=== PATIENT | male | born 1955 | race Caucasian/White ===

== ENCOUNTER → 2016-09-16 09:10 | Emergency (ER) | payer OTHER ==
[~2016-09-16 09:10] MED LIST: Lidocaine 1%* 5 ML VIAL ONE
[2016-09-16 09:16] VITALS: BP 123/92
--- NOTE | 2016-09-16 10:03 | ED ---
Laceration/Wound HPI - HPI Summary HPI Summary: Patient presents to ED s/p fall while running this morning with a laceration to the bridge of the nose, minimal blood loss and multiple abrasions over knees, arms and face. He denies LOC, confusion, N/V or visual disturbances following the incident. Denies other complaints of pain. Patient was ambulatory at the scene. Denies blood thinners or medications. He is otherwise healthy. Pain is 3/10, discretely located over the bridge of the nose and improved since arrival to ED. - History of Current Complaint Stated Complaint: FALL/FACIAL LACERATIONS Time Seen by Provider: 09/16/16 09:19 Hx Obtained From: Patient Mechanism of Injury: Sharp/Blunt Trauma Onset/Duration: Sudden Onset Aggravating: Nothing Alleviating: Compression Timing: Constant Onset Severity: Mild Current Severity: Mild Pain Intensity: 3 Pain Scale Used: 0-10 Numeric Associated Signs & Symptoms: Negative Related Hx: Recent Trauma PMH/Surg Hx/FS Hx/Imm Hx Previously Healthy: Yes - Immunization History Hx Pertussis Vaccination: No Immunizations Up to Date: Unable to Obtain/Confirm Infectious Disease History: No Infectious Disease History: Denies: Traveled Outside the [place] in Last 30 Days - Social History Occupation: Employed Full-time Lives: With Family Alcohol Use: None Hx Substance Use: No Substance Use Type: Reports: None Hx Tobacco Use: No Smoking Status (MU): Never Smoked Tobacco Review of Systems Constitutional: Negative Eyes: Negative Positive: Epistaxis Cardiovascular: Negative Gastrointestinal: Negative Positive: no symptoms reported, see HPI Musculoskeletal: Negative Positive: Other - multiple abrasions and 2cm irregular laceration to the bridge of the nose Neurological: Negative All Other Systems Reviewed And Are Negative: Yes Physical Exam Triage Information Reviewed: Yes Vital Signs On Initial Exam: Initial Vitals Temp Pulse Resp BP Pulse Ox 97.4 F 59 16 123/92 100 09/16/16 09:12 09/16/16 09:12 09/16/16 09:12 09/16/16 09:12 09/16/16 09:12 Vital Signs Reviewed: Yes Appearance: Positive: Well-Appearing, Well-Nourished Skin: Positive: Warm, Skin Color Reflects Adequate Perfusion, Other - multiple abrasions and 2cm irregular laceration to the bridge of the nose Head/Face: Positive: Normal Head/Face Inspection Eyes: Positive: EOMI, RIAZ, Conjunctiva Clear Neck: Positive: Supple, Nontender, No Lymphadenopathy Respiratory/Lung Sounds: Positive: Clear to Auscultation, Breath Sounds Present Cardiovascular: Positive: RRR, Pulses are Symmetrical in both Upper and Lower Extremities Musculoskeletal: Positive: Normal, Strength/ROM Intact Neurological: Positive: Sensory/Motor Intact, Alert, Oriented to Person Place, Time, Speech Normal Psychiatric: Positive: Normal AVPU Assessment: Alert - Judy Coma Scale Coma Scale Total: 15 Procedures - Laceration/Wound Repair 1 Location: face Description: Irregular Anesthesia: Local, 1.0% Betadine Prep?: No Laceration/Wound Explored: clean Closure: Skin Adhesive Number of Sutures: 2 Layer Closure?: No Sterile Dressing Applied?: No Diagnostics - Vital Signs Vital Signs Temp Pulse Resp BP Pulse Ox 09/16/16 09:12 97.4 F 59 16 123/92 100 - Laboratory Lab Statement: Any lab studies that have been ordered have been reviewed, and results considered in the medical decision making process. Laceration Repair Course/Dx - Course Course Of Treatment: Patient presents s/p fall. He has an irregular 2cm laceration to the bridge of the nose. Minimal blood loss. Multiple abrasions. Timeout obtained. Cleansed wound. Irrigated with 10CC's normal saline. Lidocaine without epi as local anesthetic - .5ml. 6-0 non-absorbable prolene. 2 sutures placed using simple interrupted technique. Patient tolerated well. Cleaned and dressed wound with bandaid. Also used steri strips for closure. NV exam WNL. Sutures out in 5 days. Return precautions given. Patient OK with discharge. CT maxillofacial shows comminuted fracture of the nasal bones bilaterally. Follow up with ENT in his homestate - Differential Dx Differental Diagnoses: Abrasion, Laceration, Puncture Wound - Clinical Impression Provider Diagnoses: Nasal bone fracture, Laceration of nose Discharge - Discharge Plan Condition: Stable Disposition: HOME Patient Education Materials: Nasal Fracture (ED) Referrals: Non Staff,Doctor [Primary Care Provider] - Additional Instructions: Ice to the area Tylenol for any discomfort If you develop redness, streaks of red around the wound, swelling, abnormal drainage or you develop a fever - you need to come back to the ED right away. Suture removal in 5 days. Continue to keep covered x 24 hours, then leave open to air.
--- NOTE | 2016-09-16 10:13 | RAD ---
HISTORY: Facial trauma COMPARISONS: None TECHNIQUE: Multiple contiguous axial CT scans were obtained of the face without intravenous contrast, with coronal and sagittal multiplanar reformations. FINDINGS: BONES: There are comminuted nondisplaced fractures of the distal nasal bones bilaterally. The orbital rims are intact. ORBITS: The globes are round. The optic nerves are symmetric. The extraocular musculature is normal. There is no post septal or intraconal inflammatory change. There is no retrobulbar hematoma. PARANASAL SINUSES: The paranasal sinuses are clear. The nasal septum is deviated to the right. BRAIN AND SOFT TISSUE: Unremarkable. OTHER: None. IMPRESSION: COMMINUTED NONDISPLACED FRACTURES OF THE DISTAL NASAL BONES BILATERALLY.
== END | disposition home or self-care (01) ==
LOC: ED 09:10
DX: S02.2XXA Fracture of nasal bones, initial encounter for closed fracture (principal); S01.21XA Laceration without foreign body of nose, initial encounter; W19.XXXA Unspecified fall, initial encounter; Y92.9 Unspecified place or not applicable
CPT/HCPCS: 12011; 70486; 99281